=== PATIENT | male | born 1975 | race Hispanic/Latino ===

== ENCOUNTER 2016-11-11 16:01 | Emergency (ER) | payer OTHER ==
[2016-11-11 16:01] VITALS: BMI 32.8
[2016-11-11 16:38] VITALS: BP 132/93; PULSE 92; RESP 19; TEMP 98.6; O2SAT 100
--- NOTE | 2016-11-11 17:20 | ED PDOC ---
Arrival/HPI - General Chief Complaint: Back Pain Time Seen by Provider: 11/11/16 16:30 Historian: Patient - History of Present Illness Narrative History of Present Illness (Text): 11/11/16 17:26 41yo male in ED for right sided lower back pain x 3days. States he is not sure how he injured his back. States he reached for something from his closet, by extending his arms 3days ago and not sure if the pain is secondary to that. States he took Percocet 3days ago with some relieve. the pain has improved, but he still have pain with flexion of his back. Denies urinary/fecal incontinence, abdominal pain, urinary symptoms, abdominal pain, hematuria, any other complaint. Past Medical History - Provider Review Nursing Documentation Reviewed: Yes - Infectious Disease Hx of Infectious Diseases: None - Past Medical History Past Medical History: No Previous - Cardiac Hx Cardiac Disorders: No - Pulmonary Hx Respiratory Disorders: No - Neurological Hx Neurological Disorder: Yes Hx Seizures: Yes Other/Comment: Brain Tumor - HEENT Hx HEENT Disorder: No - Renal Hx Renal Disorder: No - Endocrine/Metabolic Hx Endocrine Disorders: No - Hematological/Oncological Hx Blood Disorders: No - Integumentary Hx Dermatological Disorder: No Other/Comment: nelly zamora on medication - Musculoskeletal/Rheumatological Hx Musculoskeletal Disorders: No Other/Comment: dislocated shoulder - Gastrointestinal Hx Gastrointestinal Disorders: No - Genitourinary/Gynecological Hx Genitourinary Disorders: No - Psychiatric Hx Psychophysiologic Disorder: No Hx Substance Use: No - Past Surgical History Past Surgical History: No Previous - Surgical History Other/Comment: Brain tumor removed. R shoulder operation in June 2016 - Anesthesia Hx Anesthesia: Yes Hx Anesthesia Reactions: No Hx Malignant Hyperthermia: No - Suicidal Assessment Feels Threatened In Home Enviroment: No Family/Social History - Physician Review Nursing Documentation Reviewed: Yes Family/Social History: Unknown Family HX Smoking Status: Current Some Days Smoker Hx Alcohol Use: Yes Hx Substance Use: No Allergies/Home Meds Allergies/Adverse Reactions: Allergies No Known Allergies Allergy (Verified 11/11/16 16:25) Home Medications: Home Meds Medication Instructions Recorded Confirmed levETIRAcetam [Keppra] 500 mg PO BID 10/13/15 11/11/16 Review of Systems - Physician Review All systems were reviewed & negative as marked: Yes - Review of Systems Constitutional: Normal Eyes: Normal ENT: Normal Respiratory: Normal Cardiovascular: Normal Gastrointestinal: Normal Genitourinary Male: Normal Musculoskeletal: Back Pain Skin: Normal Neurological: Normal Endocrine: Normal Hemo/Lymphatic: Normal Psychiatric: Normal Physical Exam Vital Signs Reviewed: Yes Vital Signs Temp Pulse Resp BP Pulse Ox 11/11/16 16:29 98.6 F 92 H 19 132/93 H 100 Temperature: Afebrile Blood Pressure: Normal Pulse: Regular Respiratory Rate: Normal Appearance: Positive for: Well-Appearing, Non-Toxic, Comfortable Pain Distress: None Mental Status: Positive for: Alert and Oriented X 3 - Systems Exam Head: Present: Atraumatic, Normocephalic Pupils: Present: PERRL Extroacular Muscles: Present: EOMI Conjunctiva: Present: Normal Mouth: Present: Moist Mucous Membranes Neck: Present: Normal Range of Motion Respiratory/Chest: Present: Clear to Auscultation, Good Air Exchange. No: Respiratory Distress, Accessory Muscle Use Cardiovascular: Present: Regular Rate and Rhythm, Normal S1, S2. No: Murmurs Abdomen: Present: Normal Bowel Sounds. No: Tenderness, Distention, Peritoneal Signs Back: Present: Paraspinal Tenderness (Paraspinous tenderness). No: Midline Tenderness, Pain with Leg Raise Upper Extremity: Present: Normal Inspection. No: Cyanosis, Edema Lower Extremity: Present: Normal Inspection. No: Edema Neurological: Present: GCS=15, CN II-XII Intact, Speech Normal Skin: Present: Warm, Dry, Normal Color. No: Rashes Psychiatric: Present: Alert, Oriented x 3, Normal Insight, Normal Concentration Medical Decision Making ED Course and Treatment: 11/11/16 17:30 LS xray - No acute finding. Pt was ambulatory in ED. No focal neurological deficit noted. His pain improved in ED with medication. He was referred to his PMD. Advised to apply warm compress to area. TRT ED for any new or worsening symptoms. - RAD Interpretation Radiology Orders: 11/11/16 16:30 LS SPINE WITH OBL > 18 YRS OLD [RAD] Stat - Medication Orders Current Medication Orders: Discontinued Medications Cyclobenzaprine HCl (Flexeril) 10 mg PO STAT STA Stop: 11/11/16 16:32 Last Admin: 11/11/16 16:50 Dose: 10 mg Ketorolac Tromethamine (Toradol) 60 mg IM STAT STA Stop: 11/11/16 16:37 Last Admin: 11/11/16 16:52 Dose: 60 mg Disposition/Present on Arrival - Present on Arrival Any Indicators Present on Arrival: No History of DVT/PE: No History of Uncontrolled Diabetes: No Urinary Catheter: No History of Decub. Ulcer: No History Surgical Site Infection Following: None - Disposition Have Diagnosis and Disposition been Completed?: Yes Diagnosis: Back strain Disposition: HOME/ ROUTINE Disposition Time: 17:20 Patient Plan: Discharge Patient Problems: Current Active Problems Problem Status Onset Back strain Acute Condition: STABLE Discharge Instructions (ExitCare): Back Pain (ED) Additional Instructions: Follow up with your doctor Rest, Apply warm compress to area Return to ED for any new or worsening symptoms Prescriptions: Cyclobenzaprine [Cyclobenzaprine HCl] 10 mg PO TID #10 tab Naproxen [Naprosyn] 500 mg PO BID #20 tablet Referrals: PCP,JARED [Primary Care Provider] - Follow up with primary Franky Canchola MD [Staff Provider] - Follow up with primary
--- NOTE | 2016-11-12 08:58 | RAD ---
PROCEDURE: Radiographs of the Lumbar Spine. HISTORY: back pain COMPARISON: No prior. FINDINGS: BONES: Normal alignment. No listhesis. No fracture. DISC SPACES: Unremarkable. OTHER FINDINGS: None. IMPRESSION: Unremarkable radiographs of the lumbar spine.
== END 2016-11-11 17:33 | disposition home or self-care (01) ==
LOC: ED 16:01
DX: S39.012A Strain of muscle, fascia and tendon of lower back, initial encounter (principal); X50.1XXA Overexertion from prolonged static or awkward postures, initial encounter
CPT/HCPCS: 72110; 96372; 99282; J1885

== ENCOUNTER 2017-02-17 04:53 | Observation (INO) | payer OTHER ==
--- NOTE | 2017-02-17 05:11 | ED PDOC ---
Arrival/HPI - General Historian: Patient - History of Present Illness Time/Duration: Other (today) Symptom Onset: Gradual Symptom Course: Unchanged Activities at Onset: Rest, Light Context: Home - General Chief Complaint: Seizure Time Seen by Provider: 02/17/17 04:58 - History of Present Illness Narrative History of Present Illness (Text): 02/17/17 05:08 Addison Suero is a 41 year old male, whose medical history includes brain tumor s/p surgery in 02/2015, who presents to the Emergency department status post seizure today prior to arrival. Patient states he had a frontal headache following the seizure but denies any currently. Patient states he has been having seizures intermittently since his brain surgery and was placed on Keppra. Patient denies any chest pain, shortness of breath, nausea, vomiting, diarrhea, bowel/urinary incontinence, neck pain, vision changes, focal neurological deficits, dizziness, or any other complaints. (Nikko Rosenbaum) Past Medical History - Provider Review Nursing Documentation Reviewed: Yes - Infectious Disease Hx of Infectious Diseases: None - Past Medical History Past Medical History: No Previous - Cardiac Hx Cardiac Disorders: No - Pulmonary Hx Respiratory Disorders: No - Neurological Hx Neurological Disorder: Yes Hx Seizures: Yes Other/Comment: Brain Tumor (removed) - HEENT Hx HEENT Disorder: No - Renal Hx Renal Disorder: No - Endocrine/Metabolic Hx Endocrine Disorders: No - Hematological/Oncological Hx Blood Disorders: No - Integumentary Hx Dermatological Disorder: No Other/Comment: nelly zamora on medication - Musculoskeletal/Rheumatological Hx Musculoskeletal Disorders: No Other/Comment: dislocated shoulder - Gastrointestinal Hx Gastrointestinal Disorders: No - Genitourinary/Gynecological Hx Genitourinary Disorders: No - Psychiatric Hx Psychophysiologic Disorder: No Hx Substance Use: No - Past Surgical History Past Surgical History: No Previous - Surgical History Other/Comment: Brain - Anesthesia Hx Anesthesia: Yes Hx Anesthesia Reactions: No Hx Malignant Hyperthermia: No - Suicidal Assessment Feels Threatened In Home Enviroment: No Family/Social History - Physician Review Nursing Documentation Reviewed: Yes Family/Social History: Unknown Family HX Smoking Status: Current Some Days Smoker Hx Alcohol Use: Yes Hx Substance Use: No Allergies/Home Meds Allergies/Adverse Reactions: Allergies No Known Allergies Allergy (Verified 11/11/16 16:25) Home Medications: Home Meds Medication Instructions Recorded Confirmed levETIRAcetam [Keppra] 100 mg PO Q12H 02/17/17 02/17/17 Review of Systems - Physician Review All systems were reviewed & negative as marked: Yes - Review of Systems Constitutional: Normal. absent: Fevers Eyes: Normal ENT: Normal Respiratory: Normal. absent: SOB Cardiovascular: Normal. absent: Chest Pain Gastrointestinal: Normal. absent: Abdominal Pain, Diarrhea, Nausea, Vomiting Genitourinary Male: Normal. absent: Dysuria, Frequency, Hematuria, Urinary Output Changes Musculoskeletal: Normal. absent: Back Pain, Neck Pain Skin: Normal. absent: Rash Neurological: Headache, Seizure. absent: Dizziness Endocrine: Normal Hemo/Lymphatic: Normal Psychiatric: Normal Physical Exam Vital Signs Reviewed: Yes Temperature: Afebrile Blood Pressure: Normal Pulse: Regular Respiratory Rate: Normal Appearance: Positive for: Well-Appearing, Non-Toxic, Comfortable Pain Distress: None Mental Status: Positive for: Alert and Oriented X 3 - Systems Exam Head: Present: Atraumatic, Normocephalic Pupils: Present: PERRL Extroacular Muscles: Present: EOMI Conjunctiva: Present: Normal Mouth: Present: Moist Mucous Membranes Neck: Present: Normal Range of Motion Respiratory/Chest: Present: Clear to Auscultation, Good Air Exchange. No: Respiratory Distress, Accessory Muscle Use Cardiovascular: Present: Regular Rate and Rhythm, Normal S1, S2. No: Murmurs Abdomen: Present: Normal Bowel Sounds. No: Tenderness, Distention, Peritoneal Signs Back: Present: Normal Inspection Upper Extremity: Present: Normal Inspection. No: Cyanosis, Edema Lower Extremity: Present: Normal Inspection. No: Edema Neurological: Present: GCS=15, CN II-XII Intact, Speech Normal, Motor Func Grossly Intact, Normal Sensory Function, Normal Cerebellar Funct Skin: Present: Warm, Dry, Normal Color. No: Rashes Psychiatric: Present: Alert, Oriented x 3, Normal Insight, Normal Concentration Vital Signs Temp Pulse Resp BP Pulse Ox 02/17/17 10:31 78 18 139/82 98 02/17/17 08:30 88 18 131/85 98 02/17/17 07:13 98 H 18 126/71 98 02/17/17 04:57 98 F 108 H 20 138/80 99 Medical Decision Making - Transfer of Care Patient signed out to Dr:: lorin ct and dispo ED Course and Treatment: 02/17/17 05:08 Impression: 41 year old male presents s/p seizure tonight. Plan: -- Labs -- IV fluids -- Ativan -- Reassess and disposition Prior Visits: Notes and results from previous visits were reviewed. On 11/11/2016, pt was seen in the Emergency department for lower back pain. Pt was d/c home. Progress Notes: (Nikko Rosenbaum) - Lab Interpretations Lab Results: 02/17/17 05:21 02/17/17 05:21 Lab Results 02/17/17 05:21: Sodium 143, Potassium 3.9, Chloride 105, Carbon Dioxide 21, Anion Gap 21 H, BUN 13, Creatinine 0.9, Est GFR ( Amer) > 60, Est GFR ( Non-Af Amer) > 60, Random Glucose 88, Calcium 9.6, Total Bilirubin 1.0, AST 53, ALT 47, Alkaline Phosphatase 81, Total Protein 8.6 H, Albumin 4.9 H, Globulin 3.7, Albumin/Globulin Ratio 1.3 02/17/17 05:21: WBC 11.1 H, RBC 5.33, Hgb 16.7, Hct 46.1, MCV 86.5, MCH 31.3, MCHC 36.2, RDW 12.4, Plt Count 333, MPV 9.1, Gran % 55.6, Lymph % (Auto) 36.4 H , Sargent % (Auto) 6.8 H, Eos % (Auto) 0.5 L, Baso % (Auto) 0.7, Gran # 6.19, Lymph # 4.1 H, Sargent # 0.8 H, Eos # 0.1, Baso # 0.08 - RAD Interpretation Radiology Orders: 02/17/17 06:42 HEAD W/O CONTRAST [CT] Stat - Medication Orders Current Medication Orders: Discontinued Medications Dexamethasone (Decadron Inj) 10 mg IVP STAT STA Stop: 02/17/17 07:51 Last Admin: 02/17/17 08:01 Dose: 10 mg Famotidine (Pepcid) 20 mg PO 1000,2200 CANDICE Gadodiamide (Omniscan No Safepak) Confirm Administered Dose 4,305 mg IV .STK- MED ONE Stop: 02/17/17 15:11 Home Med (*Refrigerator Open) Confirm Administered Dose 1 unit XX .STK-MED ONE Stop: 02/17/17 05:59 Home Med (*Refrigerator Open) Confirm Administered Dose 1 unit XX .STK-MED ONE Stop: 02/18/17 06:07 Sodium Chloride (Sodium Chloride 0.9%) 1,000 mls @ 80 mls/hr IV .[id number] CANDICE Last Admin: 02/17/17 05:31 Dose: 80 mls/hr Levetiracetam 1,000 mg/ Sodium (Chloride) 110 mls @ 440 mls/hr IV ONCE ONE Stop: 02/17/17 09:22 Last Admin: 02/17/17 09:31 Dose: 440 mls/hr Levetiracetam (Keppra) 1,000 mg PO QAM CANDICE Levetiracetam (Keppra) 1,500 mg PO HS CANDICE Lorazepam (Ativan) 1 mg IVP ONCE ONE PRN Reason: Protocol Stop: 02/17/17 05:10 Last Admin: 02/17/17 06:58 Dose: Lorazepam (Ativan) 0.5 mg IVP ONCE ONE PRN Reason: Protocol Stop: 02/17/17 06:54 Last Admin: 02/17/17 06:58 Dose: 0.5 mg Pneumococcal Polyvalent Vaccine (Pneumovax 23 Vaccine) 0.5 ml IM .ONCE ONE Stop: 02/17/17 12:10 - Scribe Statement The provider has reviewed the documentation as recorded by the Scribe - Scribe Statement Pat Mcadams Provider Scribe Attestation: All medical record entries made by the Scribe were at my direction and personally dictated by me. I have reviewed the chart and agree that the record accurately reflects my personal performance of the history, physical exam, medical decision making, and the department course for this patient. I have also personally directed, reviewed, and agree with the discharge instructions and disposition. (Nikko Rosenbaum) Disposition/Present on Arrival - Present on Arrival Any Indicators Present on Arrival: No History of DVT/PE: No History of Uncontrolled Diabetes: No Urinary Catheter: No History of Decub. Ulcer: No History Surgical Site Infection Following: None - Disposition Have Diagnosis and Disposition been Completed?: Yes Disposition Time: 07:00 - Disposition Diagnosis: Seizure Disposition: HOSPITALIZED Condition: FAIR
[2017-02-17] MEDS ORDERED: Sodium Chloride 0.9% 1,000 ML IV SCH (05:15)
[2017-02-17 05:39] LABS: BASO # 0.08 K/mm3 (0.0-2.0); BASO % 0.7 % (0.0-3.0); EOS # 0.1 (0.0-0.7); EOS % 0.5 % (1.5-5.0); GRAN # 6.19 (1.4-6.5); GRAN % 55.6 % (50.0-68.0); HEMATOCRIT 46.1 % (42.0-52.0); LYMPH # 4.1 (1.2-3.4); LYMPH % 36.4 % (22.0-35.0); MEAN CELL VOLUME 86.5 fl (80.0-105.0); MEAN CORPUSCULAR HEMOGLOBIN 31.3 pg (25.0-35.0); MEAN CORPUSCULAR HGB CONC 36.2 g/dl (31.0-37.0); MEAN PLATELET VOLUME 9.1 fl (7.0-11.0); MONO # 0.8 (0.1-0.6); MONO % 6.8 % (1.0-6.0); RED CELL DISTRIBUTION WIDTH 12.4 % (11.5-14.5); WHITE BLOOD COUNT 11.1 10^3/ul (4.5-11.0)
[2017-02-17 06:04] LABS: ALB/GLOB RATIO 1.3 (1.1-1.8); ALKALINE PHOSPHATASE 81 U/L (38-133); ALT/SGPT 47 U/L (7-56); AST/SGOT 53 U/L (15-59); BLOOD UREA NITROGEN 13 mg/dL (7-21); CALCIUM 9.6 mg/dL (8.4-10.5); CARBON DIOXIDE 21 mmol/L (21-33); CHLORIDE 105 mmol/L (95-110); GFR AFRICAN-AMERICAN > 60; GLUCOSE,RANDOM 88 mg/dL (70-110); POTASSIUM 3.9 mmol/L (3.6-5.0); SODIUM 143 mmol/L (132-148); TOTAL PROTEIN 8.6 g/dL (5.8-8.3)
[2017-02-17 07:13] VITALS: RESP 18; O2SAT 98
--- NOTE | 2017-02-17 07:28 | ED PDOC ---
Physical Exam Vital Signs Reviewed: Yes Vital Signs Temp Pulse Resp BP Pulse Ox 02/17/17 07:13 98 H 18 126/71 98 02/17/17 04:57 98 F 108 H 20 138/80 99 Temperature: Afebrile Blood Pressure: Normal Pulse: Tachycardic Respiratory Rate: Normal Appearance: Positive for: Well-Appearing, Non-Toxic, Comfortable Pain Distress: None Mental Status: Positive for: Alert and Oriented X 3 Medical Decision Making ED Course and Treatment: 02/17/17 07:26: Patient sign out from overnight. Patient has a history of a brain tumor and seizures. Sign out to follow up on CT. CT HEAD WITHOUT CONTRAST Report Date : 02/17/2017 07:40:16 Dictator : Praveena Pleitez MD IMPRESSION: Abnormal density in the left centrum semiovale extending to the subcortical white matter more pronounced since the prior examination could be related to sequela of remote insult or vasogenic edema. Correlation with MRI of the brain without and with intravenous contrast would be helpful for further evaluation and to exclude underlying mass. Acostaadron ordered pt in no distress, states he feels well no focal neurological deficits on examination aware of and agrees with plan 02/17/17 08:10: Case discussed with Dr. Murdock who is covering for Dr. Reynolds (Pt has no PMD). He agrees with admission to Dr. Reynolds's service. - Lab Interpretations Lab Results: 02/17/17 05:21 02/17/17 05:21 Lab Results 02/17/17 05:21: Sodium 143, Potassium 3.9, Chloride 105, Carbon Dioxide 21, Anion Gap 21 H, BUN 13, Creatinine 0.9, Est GFR ( Amer) > 60, Est GFR ( Non-Af Amer) > 60, Random Glucose 88, Calcium 9.6, Total Bilirubin 1.0, AST 53, ALT 47, Alkaline Phosphatase 81, Total Protein 8.6 H, Albumin 4.9 H, Globulin 3.7, Albumin/Globulin Ratio 1.3 02/17/17 05:21: WBC 11.1 H, RBC 5.33, Hgb 16.7, Hct 46.1, MCV 86.5, MCH 31.3, MCHC 36.2, RDW 12.4, Plt Count 333, MPV 9.1, Gran % 55.6, Lymph % (Auto) 36.4 H , Barton % (Auto) 6.8 H, Eos % (Auto) 0.5 L, Baso % (Auto) 0.7, Gran # 6.19, Lymph # 4.1 H, Barton # 0.8 H, Eos # 0.1, Baso # 0.08 - RAD Interpretation Radiology Orders: 02/17/17 06:42 HEAD W/O CONTRAST [CT] Stat - Medication Orders Current Medication Orders: Sodium Chloride (Sodium Chloride 0.9%) 1,000 mls @ 80 mls/hr IV .[id number] CANDICE Last Admin: 02/17/17 05:31 Dose: 80 mls/hr Discontinued Medications Dexamethasone (Decadron Inj) 10 mg IVP STAT STA Stop: 02/17/17 07:51 Last Admin: 02/17/17 08:01 Dose: 10 mg Home Med (*Refrigerator Open) Confirm Administered Dose 1 unit XX .STK-MED ONE Stop: 02/17/17 05:59 Levetiracetam 1,000 mg/ Sodium (Chloride) 110 mls @ 440 mls/hr IV ONCE ONE Stop: 02/17/17 09:22 Last Admin: 02/17/17 09:31 Dose: 440 mls/hr Lorazepam (Ativan) 1 mg IVP ONCE ONE PRN Reason: Protocol Stop: 02/17/17 05:10 Last Admin: 02/17/17 06:58 Dose: Lorazepam (Ativan) 0.5 mg IVP ONCE ONE PRN Reason: Protocol Stop: 02/17/17 06:54 Last Admin: 02/17/17 06:58 Dose: 0.5 mg - Scribe Statement The provider has reviewed the documentation as recorded by the Rebecca Connolly Provider Scribe Attestation: All medical record entries made by the Rebecca were at my direction and personally dictated by me. I have reviewed the chart and agree that the record accurately reflects my personal performance of the history, physical exam, medical decision making, and the department course for this patient. I have also personally directed, reviewed, and agree with the discharge instructions and disposition. Disposition/Present on Arrival - Present on Arrival Any Indicators Present on Arrival: No History of DVT/PE: No History of Uncontrolled Diabetes: No Urinary Catheter: No History of Decub. Ulcer: No History Surgical Site Infection Following: None - Disposition Have Diagnosis and Disposition been Completed?: Yes Diagnosis: Seizure Disposition: HOSPITALIZED Disposition Time: 08:10 Patient Plan: Admission Condition: FAIR
--- NOTE | 2017-02-17 07:42 | CT ---
PROCEDURE: CT HEAD WITHOUT CONTRAST. HISTORY: seizure COMPARISON: 11/25/2014 TECHNIQUE: Axial computed tomography images were obtained through the head/brain without intravenous contrast. Radiation dose: Total exam DLP = 725.84 mGy-cm. This CT exam was performed using one or more of the following dose reduction techniques: Automated exposure control, adjustment of the mA and/or kV according to patient size, and/or use of iterative reconstruction technique. FINDINGS: HEMORRHAGE: No intracranial hemorrhage. BRAIN: There is redemonstration of low-attenuation area in the left centrum semiovale extending to the subcortical white matter with volume loss and dilatation of the left sylvian fissure. There is no mass effect or abnormal extra-axial fluid collection. VENTRICLES: The ventricles are normal in size, shape and configuration. CALVARIUM: Status post left parietal craniotomy. PARANASAL SINUSES: Predominantly clear. MASTOID AIR CELLS: Predominantly clear. OTHER FINDINGS: None. IMPRESSION: Abnormal density in the left centrum semiovale extending to the subcortical white matter more pronounced since the prior examination could be related to sequela of remote insult or vasogenic edema. Correlation with MRI of the brain without and with intravenous contrast would be helpful for further evaluation and to exclude underlying mass.
[2017-02-17] MEDS ORDERED: levETIRAcetam 1,000 MG in Sodium Chloride 0.9% 100 ML IV ONE (09:08)
--- NOTE | 2017-02-17 11:40 | CP.PCM.HP ---
<Georgia Arenas - Last Filed: 02/17/17 11:55> History of Present Illness - History of Present Illness History of Present Illness: Internal medicine H & P for Dr. Samuels covering for Dr. Christal Arenas, PGY-1 Pt S & E at bedside. 41M w/PMH sig for seizure d/o on Keppra s/p brain tumor resection in 2014 admitted s/p seizure on morning of admission. Pt reports that he has approximately 2 episodes of 3-4 seizures per mo (8 seizures per month) on the Keppra. Prior to seizure, pt experiences R facial and tongue tingling, R hand clenches and unclenches, his RUE may have motor activity. Pt was scared s/p seizure so presented to ED for evaluation and stabilization. Admits to intermittent headaches/changes of sensation/tingling over right head/face/ forehead, feels that there are "changes in his brain", had URI this past month ( cough, congestion, rhinorrhea)- resolved, numbness/tingling of extremities ( Chronic). Denies LOC, tongue biting, loss of bowel or bladder, changes in vision , N/V/F/C, constipation, diarrhea, changes in bladder habits, hematuria, hematochezia. PMH: Seizure d/o on Keppra PSH: R frontal lobe tumor resection, R shoulder surgery All: NKDA SH: Admits to ETOH use- 1-2 bottles of wine/week, tobacco use socially, denies illicit drugs PMD: [facility] Outpt neurologist: Mark Ontiveros Pharmacy: [address] in Present on Admission - Present on Admission Any Indicators Present on Admission: No History of DVT/PE: No History of Uncontrolled Diabetes: No Urinary Catheter: No Decubitus Ulcer Present: No Review of Systems - Review of Systems All systems: reviewed and no additional remarkable complaints except - Constitutional Constitutional: absent: Chills, Fever - EENT Eyes: absent: Change in Vision Ears: absent: Decreased Hearing, Dizziness Nose/Mouth/Throat: absent: Sinus Pressure, Sore Throat - Cardiovascular Cardiovascular: absent: Chest Pain, Leg Edema, Lightheadedness - Respiratory Respiratory: absent: Cough, Chest Congestion - Gastrointestinal Gastrointestinal: absent: Abdominal Pain, Change in Bowel Habits, Constipation, Diarrhea, Hematemesis, Hematochezia, Nausea, Vomiting - Genitourinary Genitourinary: absent: Change in Urinary Stream, Dysuria, Hematuria - Musculoskeletal Musculoskeletal: Numbness, Tingling Past Patient History - Infectious Disease Hx of Infectious Diseases: None - Past Social History Smoking Status: Current Some Days Smoker - CARDIAC Hx Cardiac Disorders: No - PULMONARY Hx Respiratory Disorders: No - NEUROLOGICAL Hx Neurological Disorder: Yes Hx Seizures: Yes Other/Comment: Brain Tumor (removed) - HEENT Hx HEENT Problems: No - RENAL Hx Chronic Kidney Disease: No - ENDOCRINE/METABOLIC Hx Endocrine Disorders: No - HEMATOLOGICAL/ONCOLOGICAL Hx Blood Disorders: No - INTEGUMENTARY Hx Dermatological Problems: No Other/Comment: posin noah on medication - MUSCULOSKELETAL/RHEUMATOLOGICAL Hx Musculoskeletal Disorders: No Other/Comment: dislocated shoulder - GASTROINTESTINAL Hx Gastrointestinal Disorders: No - GENITOURINARY/GYNECOLOGICAL Hx Genitourinary Disorders: No - PSYCHIATRIC Hx Psychophysiologic Disorder: No Hx Substance Use: No - SURGICAL HISTORY Other/Comment: Brain - ANESTHESIA Hx Anesthesia: Yes Hx Anesthesia Reactions: No Hx Malignant Hyperthermia: No Meds Allergies/Adverse Reactions: Allergies Allergy/AdvReac Type Severity Reaction Status Date / Time No Known Allergies Allergy Verified 11/11/16 16:25 Physical Exam - Constitutional Appears: Non-toxic, No Acute Distress - Head Exam Head Exam: ATRAUMATIC, NORMAL INSPECTION, NORMOCEPHALIC Additional comments: well healed small linear scar on lateral aspect of R eye, well healed linear scar with perpendicular scars over right forehead, well healed large scar over parietal aspect of head, palpable through hair. Right face with slight droop, flattened nasolabial fold, slight droop of mouth on right - Eye Exam Eye Exam: EOMI, Normal appearance. absent: Nystagmus - ENT Exam ENT Exam: Mucous Membranes Moist, Normal Exam - Neck Exam Neck exam: Positive for: Full Rom, Normal Inspection - Respiratory Exam Respiratory Exam: Clear to Auscultation Bilateral, NORMAL BREATHING PATTERN - Cardiovascular Exam Cardiovascular Exam: REGULAR RHYTHM, +S1, +S2 - GI/Abdominal Exam GI & Abdominal Exam: Normal Bowel Sounds, Soft - Extremities Exam Extremities exam: Positive for: normal capillary refill, normal inspection. Negative for: pedal edema, tenderness - Neurological Exam Neurological exam: Alert, CN II-XII Intact, Oriented x3 - Expanded Neurological Exam Expanded Patient oriented to: person, place, time Cranial nerves: EOM's Intact: Normal, Facial Sensation: Normal, Nystagmus: Normal, Tongue Deviation: Normal Ataxia: No Sensory exam: Lower Extremity 2 Point Discrimination: Normal, Lower Extremity Light Touch: Normal, Upper Extremity 2 Point Discrimination: Normal, Upper Extremity Light Touch: Normal Neuro motor strength exam: Left Upper Extremity: 5, Right Upper Extremity: 4, Left Lower Extremity: 5, Right Lower Extremity: 5 Coma Scale Eye Opening: SPONTANEOUS Coma Scale Motor Response: OBEYS COMMANDS Coma Scale Verbal: Oriented Coma Scale Total: 15 - Psychiatric Exam Psychiatric exam: Normal Affect, Normal Mood - Skin Skin Exam: Dry, Intact, Normal Color, Warm Results - Vital Signs Recent Vital Signs: Last Vital Signs Temp 98 F 02/17/17 04:57 Pulse 78 02/17/17 10:31 Resp 18 02/17/17 10:31 BP 139/82 02/17/17 10:31 Pulse Ox 98 02/17/17 10:31 - Labs Result Diagrams: 02/17/17 05:21 02/17/17 05:21 Assessment & Plan - Assessment and Plan (Free Text) Assessment: 89M w/PMH sig for seizure d/o on Keppra admitted s/p seizure, currently stable Plan: seizure d/o CT brain with Abnormal density in L centrum semiovale extending to subcortical white matter, more pronounced since prior exam. loaded with Keppra seizure precautions fall precautions FU EEG FU Brain MRI Neuro consulted- awaiting recs for anti-seizure medication GI/DVT ppx pepcid TEDs Dispo Admit to tele VS as per protocol Ambulate with assistance OOBTC Up ad cindy Regular diet DW attending Deepa, PGY-1 - Date & Time Date: 02/17/17 Time: 11:44 Decision To Admit - Pt Status Changed To: Hospital Disposition Of: Observation - . Bed Request Type: Telemetry Admitting Physician: Gian Reynolds <Debbie Samuels V - Last Filed: 02/20/17 09:53> Results - Vital Signs Recent Vital Signs: Last Vital Signs Temp 98.5 F 02/17/17 17:03 Pulse 80 02/17/17 17:03 Resp 18 02/17/17 17:03 BP 130/85 02/17/17 17:03 Pulse Ox 98 02/17/17 10:31 - Labs Result Diagrams: 02/17/17 05:21 02/17/17 05:21 Assessment & Plan - Assessment and Plan (Free Text) Plan: (covering for Dr. Reynolds) Agree with above. Patient says he takes Keppra 1000mg twice a day. He was given loading dose in ER. Awaiting neurology consult and recommendations. Will followup EEG and MRI Brain.
[2017-02-17 12:09] VITALS: BMI 29.9
[2017-02-17] MEDS ORDERED: Pneumococcal 23-Valent Vaccine IM ONE (12:09)
--- NOTE | 2017-02-17 12:59 | CP.PCM.CON ---
<Andrey Murphy - Last Filed: 02/17/17 12:50> History of Present Illness - History of Present Illness History of Present Illness: Neurology Consult Note for Dr. Wood Reason for Consult: Seizures 41 y/o M with PMH of seizure disorder and oligodendroglioma s/p partial resection in 02/2015 presents for seizure this morning. Patient states he began feeling right sided facial and tongue tingling before he had his seizure. Patient states his last seizure was 3 weeks ago. At this time, he had 1 episode and went back to baseline. Over the past 3 weeks, patient states he has been sleeping 3 hours per night. In addition to this, during this time he has had increased amount of stress these days. Patient states he does have a deficit of fine motor skills on the right secondary to partial brain mass resection. Patient admits to feeling tired and fatigued. Patient follows with Neurologist, Dr. Richardson. Denies CP, SOB, N/V/D, fever, chills, dysuria, numbness, tingling , weakness. PMH: Seizure disorder PSH: R frontal lobe tumor resection FMH: Noncontributory SH: Admits to tobacco and alcohol use, denies illicit drugs All: NKDA Medication: Keppra 2000 mg daily Review of Systems - Review of Systems Review of Systems: 13 point review of systems as per HPI, otherwise negative Past Patient History - Infectious Disease Hx of Infectious Diseases: None - Past Social History Smoking Status: Light Smoker < 10 Cigarettes Daily - CARDIAC Hx Cardiac Disorders: No - PULMONARY Hx Respiratory Disorders: No - NEUROLOGICAL Hx Neurological Disorder: Yes Hx Seizures: Yes Other/Comment: Brain Tumor (removed) - HEENT Hx HEENT Problems: No - RENAL Hx Chronic Kidney Disease: No - ENDOCRINE/METABOLIC Hx Endocrine Disorders: No - HEMATOLOGICAL/ONCOLOGICAL Hx Blood Disorders: No - INTEGUMENTARY Hx Dermatological Problems: No Other/Comment: nelly zamora on medication - MUSCULOSKELETAL/RHEUMATOLOGICAL Hx Falls: No - GASTROINTESTINAL Hx Gastrointestinal Disorders: No - GENITOURINARY/GYNECOLOGICAL Hx Genitourinary Disorders: No - PSYCHIATRIC Hx Substance Use: No - SURGICAL HISTORY Other/Comment: Brain - ANESTHESIA Hx Anesthesia: Yes Hx Anesthesia Reactions: No Hx Malignant Hyperthermia: No Meds Allergies/Adverse Reactions: Allergies Allergy/AdvReac Type Severity Reaction Status Date / Time No Known Allergies Allergy Verified 11/11/16 16:25 - Medications Medications: Current Medications Famotidine (Pepcid) 20 mg PO 1000,2200 [facility] Sodium Chloride (Sodium Chloride 0.9%) 1,000 mls @ 80 mls/hr IV .[id number] CANDICE Last Admin: 02/17/17 05:31 Dose: 80 mls/hr Physical Exam - Constitutional Appears: Non-toxic, No Acute Distress Additional comments: Drowsy - Head Exam Head Exam: ATRAUMATIC, NORMAL INSPECTION, NORMOCEPHALIC - Eye Exam Eye Exam: Normal appearance - Neck Exam Neck exam: Positive for: Normal Inspection. Negative for: Lymphadenopathy - Respiratory Exam Respiratory Exam: Clear to Auscultation Bilateral, NORMAL BREATHING PATTERN. absent: Rales, Rhonchi, Wheezes - Cardiovascular Exam Cardiovascular Exam: RRR, +S1, +S2 - GI/Abdominal Exam GI & Abdominal Exam: Normal Bowel Sounds, Soft. absent: Tenderness - Extremities Exam Extremities exam: Positive for: normal inspection. Negative for: calf tenderness, pedal edema - Neurological Exam Neurological exam: Alert, CN II-XII Intact, Oriented x3 Additional comments: No pronator drift No sensory deficits Decrease in fine motor skills on right - Psychiatric Exam Psychiatric exam: Normal Affect, Normal Mood - Skin Skin Exam: Intact, Normal Color, Warm Results - Vital Signs Recent Vital Signs: Last Vital Signs Temp 98 F 02/17/17 11:59 Pulse 88 02/17/17 11:59 Resp 18 02/17/17 11:59 BP 131/85 02/17/17 11:59 Pulse Ox 98 02/17/17 10:31 - Labs Result Diagrams: 02/17/17 05:21 02/17/17 05:21 Assessment & Plan - Assessment and Plan (Free Text) Plan: 41 y/o M with PMH of seizure disorder and oligodendroglioma s/p partial resection presents with seizure likely secondary to sleep deprivation. Patient recommended to have Brain MRI to further evaluate brain mass and have EEG to follow up on seizure activity. Patient will have Keppra dosage increased while in the hospital and f/u with outpt neurologist to determine future dosage. Plan: Proper sleep hygiene Brain MRI EEG Keppra 1000 mg in AM, 1500 mg PM Follow up with Neurologist outpatient Jeffrey, PGY-2 <Manpreet Wood - Last Filed: 02/17/17 13:09> Meds - Medications Medications: Current Medications Famotidine (Pepcid) 20 mg PO 1000,2200 C[facility] Sodium Chloride (Sodium Chloride 0.9%) 1,000 mls @ 80 mls/hr IV .[id number] CANDICE Last Admin: 02/17/17 05:31 Dose: 80 mls/hr Results - Vital Signs Recent Vital Signs: Last Vital Signs Temp 98 F 02/17/17 11:59 Pulse 88 02/17/17 11:59 Resp 18 02/17/17 11:59 BP 131/85 02/17/17 11:59 Pulse Ox 98 02/17/17 10:31 - Labs Result Diagrams: 02/17/17 05:21 02/17/17 05:21 Assessment & Plan - Assessment and Plan (Free Text) Plan: BREAKTHOUGH SEIZURE SECONDARY TO SCAR TISSUE FROM OLIGODENDRIGLIOMA REMOVAL PROVOKED BY SLEEP DEPRIVATION. RECOMMEND: MRI BRAIN TO ASSESS FOR ANY FURTHER ACUTE ABNORMALITIES AND EDEMA. EEG TO ASSES BRAIN WAVE ACTIVITY. INCREASE EVENING DOSE OF KEPPRA TO 1500MG QHS AND KEEP 1000MG PO QAM. SLEEP HYGIENE ADVISED. NO DRIVING. F/U WITH HIS NEUROLOGIST. Attending/Attestation - Attestation I have personally seen and examined this patient.: Yes I have fully participated in the care of the patient.: Yes I have reviewed all pertinent clinical information: Yes
[2017-02-17] MEDS ORDERED: Gadodiamide 287 MG/ML VIAL (15ML) IV ONE (15:10)
--- NOTE | 2017-02-17 16:15 | MRI ---
PROCEDURE: MRI BRAIN WITH AND WITHOUT CONTRAST HISTORY: mass COMPARISON: 11/25/2014 CT of the head TECHNIQUE: Multiplanar, multisequence MR images of the brain were obtained with and without intravenous contrast enhancement. 15 cc of Omniscan FINDINGS: HEMORRHAGE: None DWI: There is restricted diffusion in a similar distribution to the T2 abnormality on T2 and FLAIR images. BRAIN PARENCHYMA: There is a large area of abnormal signal intensity in the left posterior frontal and parietal white matter consistent with a neoplastic lesion. This measures 6.1 cm AP x 4.8 cm wide by 5.4 cm in height. There is also a small amount of faint enhancement within this lesion. There is a focal defect extending to the cortical surface which is most likely be a previous resection or biopsy. There is a craniotomy defect this region. The appearance is most consistent with a low grade neoplasm such as astrocytoma. There are no prior MRI studies for comparison at this institution. The previous CT shows a similar size lesion. Clinical correlation is suggested ENHANCEMENT: No abnormal intracranial enhancement. VENTRICLES: Unremarkable. No hydrocephalus. CRANIUM: Unremarkable. ORBITS: Grossly unremarkable. PARANASAL SINUSES/MASTOIDS: Clear VASCULAR SYSTEM: Skull base flow voids intact. OTHER FINDINGS: None . IMPRESSION: Left posterior frontal and parietal white matter lesion with faint enhancement. Previous surgical defect. 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 See comments
[2017-02-17 17:05] VITALS: BP 130/85; PULSE 80; TEMP 98.5
--- NOTE | 2017-02-17 17:32 | CP.PCM.DIS ---
<DeepaGeorgia - Last Filed: 02/17/17 17:39> Provider - Provider Date of Admission: 02/17/17 09:21 Attending physician: Gian Reynolds MD Primary care physician: Tangela Greer DO Consults: Neuro-A Nina Time Spent in preparation of Discharge (in minutes): 35 Hospital Course - Lab Results Lab Results: Most Recent Lab Values WBC 11.1 10^3/ul (4.5-11.0) H 02/17/17 05:21 RBC 5.33 10^6/uL (3.5-6.1) 02/17/17 05:21 Hgb 16.7 g/dL (14.0-18.0) 02/17/17 05:21 Hct 46.1 % (42.0-52.0) 02/17/17 05:21 MCV 86.5 fl (80.0-105.0) 02/17/17 05:21 MCH 31.3 pg (25.0-35.0) 02/17/17 05:21 MCHC 36.2 g/dl (31.0-37.0) 02/17/17 05:21 RDW 12.4 % (11.5-14.5) 02/17/17 05:21 Plt Count 333 10^3/uL (120.0-450.0) 02/17/17 05:21 MPV 9.1 fl (7.0-11.0) 02/17/17 05:21 Gran % 55.6 % (50.0-68.0) 02/17/17 05:21 Lymph % (Auto) 36.4 % (22.0-35.0) H 02/17/17 05:21 Hanson % (Auto) 6.8 % (1.0-6.0) H 02/17/17 05:21 Eos % (Auto) 0.5 % (1.5-5.0) L 02/17/17 05:21 Baso % (Auto) 0.7 % (0.0-3.0) 02/17/17 05:21 Gran # 6.19 (1.4-6.5) 02/17/17 05:21 Lymph # 4.1 (1.2-3.4) H 02/17/17 05:21 Hanson # 0.8 (0.1-0.6) H 02/17/17 05:21 Eos # 0.1 (0.0-0.7) 02/17/17 05:21 Baso # 0.08 K/mm3 (0.0-2.0) 02/17/17 05:21 Sodium 143 mmol/L (132-148) 02/17/17 05:21 Potassium 3.9 mmol/L (3.6-5.0) 02/17/17 05:21 Chloride 105 mmol/L (95-110) 02/17/17 05:21 Carbon Dioxide 21 mmol/L (21-33) 02/17/17 05:21 Anion Gap 21 (10-20) H 02/17/17 05:21 BUN 13 mg/dL (7-21) 02/17/17 05:21 Creatinine 0.9 mg/dL (0.5-1.4) 02/17/17 05:21 Est GFR ( Amer) > 60 02/17/17 05:21 Est GFR (Non-Af Amer) > 60 02/17/17 05:21 Random Glucose 88 mg/dL (70-110) 02/17/17 05:21 Calcium 9.6 mg/dL (8.4-10.5) 02/17/17 05:21 Total Bilirubin 1.0 mg/dL (0.2-1.3) 02/17/17 05:21 AST 53 U/L (15-59) 02/17/17 05:21 ALT 47 U/L (7-56) 02/17/17 05:21 Alkaline Phosphatase 81 U/L (38-133) 02/17/17 05:21 Total Protein 8.6 g/dL (5.8-8.3) H 02/17/17 05:21 Albumin 4.9 g/dL (3.0-4.8) H 02/17/17 05:21 Globulin 3.7 gm/dL 02/17/17 05:21 Albumin/Globulin Ratio 1.3 (1.1-1.8) 02/17/17 05:21 - Hospital Course Hospital Course: 41M w/PMH sig for seizure d/o s/p [facility] (2014[facility] with approximately 8 break through seizures per month admitted s/p seizure on AM of admission. CT brain with abnormal density in L centrum semiovale extending to subcortical white matter, more pronounced since prior exam. Brain MRI with findings of Left posterior frontal and parietal white matter lesion with faint enhancement. Previous surgical defect. 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 Pt seen/evaluated by neurology with recommendation for modification of Keppra dosage, recommendations for EEG- which was completed. Pt requested discharge against medical advice, was instructed on risks of leaving AMA by house resident. Diagnoses: seizure d/o - Date & Time of H&P Date of H&P: 02/17/17 Time of H&P: 11:37 Discharge Exam - Head Exam Head Exam: ATRAUMATIC, NORMAL INSPECTION, NORMOCEPHALIC Additional comments: well healed small linear scar on lateral aspect of R eye, well healed linear scar with perpendicular scars over right forehead, well healed large scar over parietal aspect of head, palpable through hair. Right face with slight droop, flattened nasolabial fold, slight droop of mouth on right - Eye Exam Eye Exam: EOMI, Normal appearance - ENT Exam ENT Exam: Mucous Membranes Moist, Normal Exam - Neck Exam Neck exam: Full Rom, Normal Inspection - Respiratory Exam Respiratory Exam: Clear to PA & Lateral, NORMAL BREATHING PATTERN, UNREMARKABLE - Cardiovascular Exam Cardiovascular Exam: REGULAR RHYTHM, +S1, +S2 - GI/Abdominal Exam GI & Abdominal Exam: Normal Bowel Sounds, Soft, Unremarkable. absent: Tenderness - Extremities Exam Extremities exam: normal inspection - Neurological Exam Neurological exam: Alert, CN II-XII Intact, Oriented x3 Additional comments: Right UE with decreased motor strength (4/5) vs. LUE (5/5 motor strength); B/ L 5/5 LE motor strength - Psychiatric Exam Psychiatric exam: Normal Affect, Normal Mood - Skin Skin Exam: Dry, Intact, Normal Color, Warm Discharge Plan - Follow Up Plan Condition: FAIR Disposition: AGAINST MEDICAL ADVICE Instructions: Recurrent Seizures in Adults (DC) Additional Instructions: Patient requesting discharge against medical advice, instructed to follow up with primary care provider and neurologist this week after discharge. Referrals: Tangela Greer DO [Primary Care Provider] - <Debbie Samuels V - Last Filed: 03/05/17 11:59> Provider - Provider Date of Admission: 02/17/17 09:21 Attending physician: Gian Reynolds MD [facility] - Lab Results Lab Results: Most Recent Lab Values WBC 11.1 10^3/ul (4.5-11.0) H 02/17/17 05:21 RBC 5.33 10^6/uL (3.5-6.1) 02/17/17 05:21 Hgb 16.7 g/dL (14.0-18.0) 02/17/17 05:21 Hct 46.1 % (42.0-52.0) 02/17/17 05:21 MCV 86.5 fl (80.0-105.0) 02/17/17 05:21 MCH 31.3 pg (25.0-35.0) 02/17/17 05:21 MCHC 36.2 g/dl (31.0-37.0) 02/17/17 05:21 RDW 12.4 % (11.5-14.5) 02/17/17 05:21 Plt Count 333 10^3/uL (120.0-450.0) 02/17/17 05:21 MPV 9.1 fl (7.0-11.0) 02/17/17 05:21 Gran % 55.6 % (50.0-68.0) 02/17/17 05:21 Lymph % (Auto) 36.4 % (22.0-35.0) H 02/17/17 05:21 Hanson % (Auto) 6.8 % (1.0-6.0) H 02/17/17 05:21 Eos % (Auto) 0.5 % (1.5-5.0) L 02/17/17 05:21 Baso % (Auto) 0.7 % (0.0-3.0) 02/17/17 05:21 Gran # 6.19 (1.4-6.5) 02/17/17 05:21 Lymph # 4.1 (1.2-3.4) H 02/17/17 05:21 Hanson # 0.8 (0.1-0.6) H 02/17/17 05:21 Eos # 0.1 (0.0-0.7) 02/17/17 05:21 Baso # 0.08 K/mm3 (0.0-2.0) 02/17/17 05:21 Sodium 143 mmol/L (132-148) 02/17/17 05:21 Potassium 3.9 mmol/L (3.6-5.0) 02/17/17 05:21 Chloride 105 mmol/L (95-110) 02/17/17 05:21 Carbon Dioxide 21 mmol/L (21-33) 02/17/17 05:21 Anion Gap 21 (10-20) H 02/17/17 05:21 BUN 13 mg/dL (7-21) 02/17/17 05:21 Creatinine 0.9 mg/dL (0.5-1.4) 02/17/17 05:21 Est GFR ( Amer) > 60 02/17/17 05:21 Est GFR (Non-Af Amer) > 60 02/17/17 05:21 Random Glucose 88 mg/dL (70-110) 02/17/17 05:21 Calcium 9.6 mg/dL (8.4-10.5) 02/17/17 05:21 Total Bilirubin 1.0 mg/dL (0.2-1.3) 02/17/17 05:21 AST 53 U/L (15-59) 02/17/17 05:21 ALT 47 U/L (7-56) 02/17/17 05:21 Alkaline Phosphatase 81 U/L (38-133) 02/17/17 05:21 Total Protein 8.6 g/dL (5.8-8.3) H 02/17/17 05:21 Albumin 4.9 g/dL (3.0-4.8) H 02/17/17 05:21 Globulin 3.7 gm/dL 02/17/17 05:21 Albumin/Globulin Ratio 1.3 (1.1-1.8) 02/17/17 05:21
--- NOTE | 2017-02-18 14:56 | EEG ---
DATE: CONDITION OF THE RECORDING: Drowsy EEG. DIAGNOSIS: Seizure. MEDICATIONS: Keppra. INTERPRETATION: This is a 16-channel international recording. Background activity of this patient was composed of 6 to 7 cycles per second. There was increased amount of beta activity 16 to 20 cycles per seconds seen in this recording consisting medication effect. There was mild breach artifact seen on the left frontal area. There was increased amount of theta activity 5-7 cycles per seconds seen in the tracing. Drowsiness was characterized by mixed beta and theta activities. The sleep was characterized by vertex slowing. Photic stimulation showed no change in the tracing. No paroxysmal activity is noted in this recording. CONCLUSION: This is an abnormal EEG due to the presence of mild diffuse slowing especially in the left frontal areas consistent with bilateral cerebral dysfunction. No evidence of any epileptiform activity. Please clinically correlate. Manpreet Wood MD
== END 2017-02-18 07:36 | disposition left against medical advice (07) ==
LOC: ED 04:53 → INTOOBSV 09:21 → ERH 09:21 → 2RNO 11:02
PROVIDERS: ADMIT Internal Medicine; ATTEND Internal Medicine
DX: G40.909 Epilepsy, unspecified, not intractable, without status epilepticus (principal); Z85.841 Personal history of malignant neoplasm of brain; Z72.820 Sleep deprivation
CPT/HCPCS: 70450; 70553; 80053; 85025; 95812; 96374; 96375; 99285; A9579; G0378; J1100; J1953; J2060; J7040

== ENCOUNTER 2017-03-22 03:02 | Emergency (ER) | payer OTHER ==
[2017-03-22 03:03] VITALS: BMI 29.9
[2017-03-22 03:37] LABS: BASO # 0.06 K/mm3 (0.0-2.0); BASO % 0.6 % (0.0-3.0); EOS # 0.3 (0.0-0.7); EOS % 3.3 % (1.5-5.0); GRAN # 5.2 (1.4-6.5); GRAN % 53.1 % (50.0-68.0); HEMATOCRIT 42.4 % (42.0-52.0); LYMPH # 3.4 (1.2-3.4); LYMPH % 34.5 % (22.0-35.0); MEAN CELL VOLUME 86.9 fl (80.0-105.0); MEAN CORPUSCULAR HEMOGLOBIN 31.6 pg (25.0-35.0); MEAN CORPUSCULAR HGB CONC 36.3 g/dl (31.0-37.0); MONO # 0.8 (0.1-0.6); MONO % 8.5 % (1.0-6.0); RED CELL DISTRIBUTION WIDTH 12.4 % (11.5-14.5); WHITE BLOOD COUNT 9.8 10^3/ul (4.5-11.0)
[2017-03-22 03:42] LABS: ALB/GLOB RATIO 1.5 (1.1-1.8); ALKALINE PHOSPHATASE 76 U/L (38-126); ALT/SGPT 42 U/L (7-56); AST/SGOT 32 U/L (17-59); BILIRUBIN,TOTAL 0.5 mg/dL (0.2-1.3); BLOOD UREA NITROGEN 16 mg/dL (7-21); CALCIUM 9.4 mg/dL (8.4-10.5); CARBON DIOXIDE 24 mmol/L (21-33); CHLORIDE 103 mmol/L (98-107); GFR AFRICAN-AMERICAN > 60; GLUCOSE,RANDOM 88 mg/dL (70-110); POTASSIUM 3.8 mmol/L (3.6-5.0); SODIUM 140 mmol/L (132-148); TOTAL PROTEIN 7.1 g/dL (5.8-8.3)
--- NOTE | 2017-03-22 04:21 | ED PDOC ---
Arrival/HPI - General Chief Complaint: Seizure Time Seen by Provider: 03/22/17 03:06 Historian: Patient - History of Present Illness Narrative History of Present Illness (Text): 03/22/17 03:35 41 year old male, whose medical history includes seizure d/o on Keppra s/p brain tumor resection in 02/2015, who presents to the Emergency department status post seizure today 4 hours prior to arrival. Patient states he is compliant with his medication and has been having intermittent seizures since his brain surgery. Patient denies any tongue biting, fever, chills, chest pain, shortness of breath, nausea, vomiting, diarrhea, urinary symptoms, back pain, neck pain, headache, dizziness, or any other complaints. PMD: Dr. Abrams Time/Duration: Other (4 hours prior to arrival) Symptom Onset: Sudden Symptom Course: Unchanged Activities at Onset: Light Context: Home Past Medical History - Provider Review Nursing Documentation Reviewed: Yes - Infectious Disease Hx of Infectious Diseases: None - Past Medical History Past Medical History: No Previous - Cardiac Hx Cardiac Disorders: No - Pulmonary Hx Respiratory Disorders: No - Neurological Hx Neurological Disorder: Yes Hx Seizures: Yes Other/Comment: Brain Tumor (removed) - HEENT Hx HEENT Disorder: No - Renal Hx Renal Disorder: No - Endocrine/Metabolic Hx Endocrine Disorders: No - Hematological/Oncological Hx Blood Disorders: No - Integumentary Hx Dermatological Disorder: No Other/Comment: nelly zamora on medication - Musculoskeletal/Rheumatological Hx Musculoskeletal Disorders: No Other/Comment: dislocated shoulder - Gastrointestinal Hx Gastrointestinal Disorders: No - Genitourinary/Gynecological Hx Genitourinary Disorders: No - Psychiatric Hx Psychophysiologic Disorder: No Hx Substance Use: No - Past Surgical History Past Surgical History: No Previous - Surgical History Other/Comment: Brain - Left Frontal Craniotomy. - Anesthesia Hx Anesthesia: Yes Hx Anesthesia Reactions: No Hx Malignant Hyperthermia: No - Suicidal Assessment Feels Threatened In Home Enviroment: No Family/Social History - Physician Review Nursing Documentation Reviewed: Yes Family/Social History: No Known Family HX Smoking Status: Current Some Days Smoker Hx Alcohol Use: Yes Hx Substance Use: No Allergies/Home Meds Allergies/Adverse Reactions: Allergies No Known Allergies Allergy (Verified 11/11/16 16:25) Home Medications: Home Meds Medication Instructions Recorded Confirmed levETIRAcetam [Keppra] 2,000 mg PO Q12H 08/21/17 09/23/17 Review of Systems - Physician Review All systems were reviewed & negative as marked: Yes - Review of Systems Constitutional: absent: Fevers, Other (Chills) ENT: absent: Other (tongue bite) Respiratory: absent: SOB Cardiovascular: absent: Chest Pain Gastrointestinal: absent: Diarrhea, Nausea, Vomiting Genitourinary Male: absent: Dysuria, Frequency, Hematuria Musculoskeletal: absent: Back Pain, Neck Pain Neurological: Seizure. absent: Headache, Dizziness Physical Exam Vital Signs Temp Pulse Resp BP Pulse Ox 03/22/17 03:10 98.3 F 83 16 123/73 99 Appearance: Positive for: Well-Appearing, Non-Toxic, Comfortable Pain Distress: None Mental Status: Positive for: Alert and Oriented X 3 - Systems Exam Head: Present: Atraumatic, Normocephalic Pupils: Present: PERRL Extroacular Muscles: Present: EOMI Conjunctiva: Present: Normal Mouth: Present: Moist Mucous Membranes Neck: Present: Normal Range of Motion Respiratory/Chest: Present: Clear to Auscultation, Good Air Exchange. No: Respiratory Distress, Accessory Muscle Use Cardiovascular: Present: Regular Rate and Rhythm, Normal S1, S2. No: Murmurs Abdomen: Present: Normal Bowel Sounds. No: Tenderness, Distention, Peritoneal Signs Back: Present: Normal Inspection Upper Extremity: Present: Normal Inspection. No: Cyanosis, Edema Lower Extremity: Present: Normal Inspection. No: Edema Neurological: Present: GCS=15, CN II-XII Intact, Speech Normal Skin: Present: Warm, Dry, Normal Color. No: Rashes Psychiatric: Present: Alert, Oriented x 3, Normal Insight, Normal Concentration Medical Decision Making ED Course and Treatment: 03/22/17 03:30 Impression: 31 year old male presents status post seizure today 4 hours prior to arrival. Plan: -- Head CT -- EKG -- Labs -- Reassess and disposition Prior Visits: Notes and results from previous visits were reviewed. On 02/17/17 patient came in status post seizure today prior to arrival. Progress Notes: EKG shows NSR at 82 BPM. Interpreted by me. EXAM:CT Head Without Intravenous Contrast EXAM DATE/TIME: 03/22/2017 3:19 AM Dictated and Authenticated by: Iliana Nunez MD IMPRESSION: Stable low-attenuation in the white matter of the left frontal parietal lobe as discussed in detail above. 03/22/17 05:05 On re-evaluation, patient had no seizure activity since arrival. Head CT is unchanged from pervious. I have discussed the results and plan with the patient , who expresses understanding. Patient in agreement with plan to be discharged home. Patient is stable for discharge. Patient was instructed to follow up with neurologist in 48 hours, or return if symptoms worsen or new concerning symptoms arise. - Lab Interpretations Lab Results: 03/22/17 03:23 03/22/17 03:23 Lab Results 03/22/17 03:23: Alcohol, Quantitative < 10 03/22/17 03:23: Sodium 140, Potassium 3.8, Chloride 103, Carbon Dioxide 24, Anion Gap 17, BUN 16, Creatinine 1.0, Est GFR ( Amer) > 60, Est GFR (Non- Af Amer) > 60, Random Glucose 88, Calcium 9.4, Total Bilirubin 0.5, AST 32, ALT 42, Alkaline Phosphatase 76, Total Protein 7.1, Albumin 4.3, Globulin 2.8, Albumin/Globulin Ratio 1.5 03/22/17 03:23: WBC 9.8, RBC 4.88, Hgb 15.4, Hct 42.4, MCV 86.9, MCH 31.6, MCHC 36.3, RDW 12.4, Plt Count 326, MPV 9.0, Gran % 53.1, Lymph % (Auto) 34.5, Griggs % (Auto) 8.5 H, Eos % (Auto) 3.3, Baso % (Auto) 0.6, Gran # 5.20, Lymph # 3.4, Griggs # 0.8 H, Eos # 0.3, Baso # 0.06 I have reviewed the lab results: Yes - RAD Interpretation Radiology Orders: 03/22/17 03:19 HEAD W/O CONTRAST [CT] Stat - EKG Interpretation Interpreted by ED Physician: Yes Type: 12 lead EKG - Medication Orders Current Medication Orders: Discontinued Medications Haloperidol Lactate (Haldol) Confirm Administered Dose 5 mg .ROUTE .STK-MED ONE Stop: 03/22/17 04:16 Lorazepam (Ativan) Confirm Administered Dose 2 mg .ROUTE .STK-MED ONE Stop: 03/22/17 04:17 Ondansetron HCl (Zofran Inj) Confirm Administered Dose 4 mg .ROUTE .STK-MED ONE Stop: 03/22/17 04:19 Ondansetron HCl (Zofran Inj) Confirm Administered Dose 4 mg .ROUTE .STK-MED ONE Stop: 03/22/17 04:21 - Scribe Statement The provider has reviewed the documentation as recorded by the Stephaniibe Yulia Francois All medical record entries made by the Scribe were at my direction and personally dictated by me. I have reviewed the chart and agree that the record accurately reflects my personal performance of the history, physical exam, medical decision making, and the department course for this patient. I have also personally directed, reviewed, and agree with the discharge instructions and disposition. Disposition/Present on Arrival - Present on Arrival Any Indicators Present on Arrival: No History of DVT/PE: No History of Uncontrolled Diabetes: No Urinary Catheter: No History of Decub. Ulcer: No History Surgical Site Infection Following: None - Disposition Have Diagnosis and Disposition been Completed?: Yes Diagnosis: Seizure Disposition: HOME/ ROUTINE Disposition Time: 04:45 Patient Problems: Current Active Problems Problem Status Onset Seizure Acute Condition: GOOD Discharge Instructions (ExitCare): Epilepsy (ED) Additional Instructions: Thank you for letting us take care of you today. Your provider was Dr. Duque. You were treated for a seizure. The emergency medical care you received today was directed at your acute symptoms. If you were prescribed any medication, please fill it and take as directed. It may take several days for your symptoms to resolve. Return to the Emergency Department if your symptoms worsen, do not improve, or if you have any other problems. Please contact your doctor or call one of the physicians/clinics you have been referred to that are listed on the Patient Visit Information form that is included in your discharge packet. Bring any paperwork you were given at discharge with you along with any medications you are taking to your follow up visit. Our treatment cannot replace ongoing medical care by a primary care provider (PCP) outside of the emergency department. Thank you for allowing the [facility] team to be part of your care today. Your blood work was normal and the CT of your brain was unchanged from the previous scan. Follow up with your neurologist in 2 days for re-evaluation and further management. Forms: [facility] ([place])
--- NOTE | 2017-03-22 04:32 | CT ---
EXAM: CT Head Without Intravenous Contrast EXAM DATE/TIME: 03/22/2017 3:19 AM CLINICAL HISTORY: 41 years old, male; Condition or disease; Other: Seizure/ h/o tumor resection; Additional info: Seizure- h/o tumor resection TECHNIQUE: Axial computed tomography images of the head/brain without intravenous contrast. All CT scans at this facility use one or more dose reduction techniques, viz.: automated exposure control; ma/kV adjustment per patient size (including targeted exams where dose is matched to indication; i.e. head); or iterative reconstruction technique. COMPARISON: CT - HEAD W/O CONTRAST 02/17/2017 6:51:33 AM FINDINGS: Again seen is evidence of left parietal craniotomy. Again seen is low-attenuation in the white matter of the left frontal parietal lobes adjacent to the craniotomy defect. It has not changed significantly since the prior CT. MRI performed in the interim demonstrated an underlying lesion with faint enhancement. There are no new areas of edema identified. No mass effect or midline shift. No intracranial hemorrhage. Mild mucosal thickening left ethmoid sinus. IMPRESSION: Stable low-attenuation in the white matter of the left frontal parietal lobe as discussed in detail above.
[2017-03-22 04:36] VITALS: RESP 16; TEMP 98.3; O2SAT 99
[2017-03-22 05:50] VITALS: BP 120/78; PULSE 74
--- NOTE | 2017-03-22 19:31 | CARD ---
APPROVED REPORT EKG Measurement Heart [id number] <Conclusion> Normal sinus rhythm Normal ECG
== END 2017-03-22 07:07 | disposition home or self-care (01) ==
LOC: ED 03:02
DX: G40.909 Epilepsy, unspecified, not intractable, without status epilepticus (principal)

== ENCOUNTER 2018-08-19 11:44 | Outpatient (CLI) | payer OTHER | END 2018-08-19 11:45 | disposition home or self-care (01) | LOC: LAB 11:44 ==

== ENCOUNTER 2018-08-21 11:17 | Outpatient (CLI) | payer OTHER | END 2018-08-21 11:18 | disposition home or self-care (01) | LOC: RAD 11:17 ==